=== PATIENT | male | born 1990 | race Caucasian/White ===

== ENCOUNTER → 2020-10-30 15:02 | Outpatient (CLI) | payer BC, SELFPAY ==
--- NOTE | ~2020-10-30 | CT_ITS ---
EXAMINATION: CT sinus wo con DATE: 10/30/2020 15:13 INDICATION: Other symptoms and signs involving general sensations and perceptions. TECHNIQUE: Computed tomography (CT) of the paranasal sinuses was performed without intravenous contra st. Iterative reconstruction technique was employed. The dose-length product was 276.47 mGy-cm. COMPARISON: None FINDINGS: The frontal, ethmoid, sphenoid, and maxillary sinuses are clear. There is mild leftward dev iation of the nasal septum. There is a La cell on the left. The ostiomeatal units are patent. IMPRESSION: 1. Clear paranasal sinuses. Reviewed, dictated and finalized at location A. IMPRESSION: 1. Clear paranasal sinuses.
== END ==
PROVIDERS: PCP Internal Medicine; Visit Provider Otolaryngology
DX: J39.2 Other diseases of pharynx (principal); R44.8 Other symptoms and signs involving general sensations and perceptions; J32.9 Chronic sinusitis, unspecified; R09.82 Postnasal drip; R48.1 Agnosia
CPT/HCPCS: 70486